=== PATIENT | female | born 1935 | race African-American/Black ===

== ENCOUNTER 2017-07-01 13:19 | Outpatient (CLI) | payer MEDICARE ==
--- NOTE | 2017-07-01 15:26 | CT ---
CT CHEST WITH IV CONTRAST: History: Lung nodule. FINDINGS: No comparison. Centered within the posterior segment of the right upper lobe is an oval infiltrate w ith hazy peripheral margins. It measures up to 2.2 x 2.0 cm greatest diameters with some internal ai r bronchograms apparent. No other focal parenchymal lung mass is evident. Calcified mediastinal lymp h nodes are consistent with healed granulomatous disease. No mediastinal adenopathy is apparent. The re is mild atelectasis at each lung base. Degenerative changes involve the lumbar spine. There is ca lcification in the arterial structures. Within the partially visualized upper abdomen, the adrenal g lands have a normal appearance. Lobulation of the cortex of the right kidney is partially visualized . IMPRESSION: 1. Focal mass like infiltrate containing air bronchograms within the posterior segment right upper l obe as detailed above, measuring up to 2.2 cm greatest diameter. Please consider pulmonary medicine evaluation. While a neoplastic process is possible, this could also represent a resolving inflammato ry process. The lack of well-defined internal soft tissue component would make this lesion not well amendable to percutaneous sampling. 2. Atherosclerosis. POS: [facility]
[2017-07-01] MEDS ORDERED: Iopamidol 370 76% 100 ML VIAL ONE (15:37)
== END 2017-07-01 13:20 | disposition home or self-care (01) ==
LOC: CT 13:19
PROVIDERS: ATTEND Family Medicine
DX: R91.1 Solitary pulmonary nodule (principal); I70.90 Unspecified atherosclerosis
CPT/HCPCS: 71260

== ENCOUNTER 2017-09-07 12:00 | Outpatient (CLI) | payer MEDICARE ==
--- NOTE | 2017-09-09 11:48 | PET ---
PET CT: HISTORY: 82-year-old female with solitary pulmonary nodule on CT scan of 07/01/17. TECHNIQUE: PET scanning with CT attenuation correction was performed from the vertex through the proximal thighs following the intravenous administration of 14.3 mCi [id number] in the right antecubital fossa. Imaging was performed after an uptake interval of 59 minutes. COMPARISON: None. CORRELATION: CT chest dated 07/01/17. FINDINGS: No abnormal FDG localization is seen in the 2.2 x 2.0 cm in the right upper lobe lung nodule (posteri or segment) noted on the CT scan. This demonstrates a SUV of 1.5. No other hypermetabolic pulmonary n odules are seen. No nayda hypermetabolism is noted in the neck, mediastinum, hilar regions, axilla, abdomen, pelvis, o r inguinal regions. No hypermetabolic liver, adrenal, or skeletal lesions are seen. There is physiologic activity in the GI and tracts, and the visualized portions of the brain. Asym metrically increased uptake is noted in the left longus colli muscle in the neck, likely physiologic. The CT scan used for attenuation correction demonstrates no evidence of pleural effusions or ascites. Calcified uterine fibroids are present. IMPRESSION: No abnormal FDG localization is noted in the right lung nodule. A follow-up CT scan is recommended in 3 months. POS: [facility]
== END 2017-09-07 12:01 | disposition home or self-care (01) ==
LOC: PET 12:00
PROVIDERS: ATTEND Internal Medicine Critical Care Medicine
DX: R91.1 Solitary pulmonary nodule (principal)
CPT/HCPCS: 78815; A9552

== ENCOUNTER 2017-09-09 13:18 | Outpatient (CLI) | payer MEDICARE ==
--- NOTE | 2017-09-09 16:02 | ULT ---
VENOUS DOPPLER ULTRASOUND OF THE LEFT LOWER EXTREMITY: Date: 09/09/17 HISTORY: Left lower extremity edema. TECHNIQUE: Malone scale ultrasound with color flow and spectral Doppler imaging of the deep venous systems of the left lower extremity performed. FINDINGS: There is good flow, compression, and augmentation noted in the left common femoral, femoral, deep fem oral, popliteal, posterior tibial, and greater saphenous veins. IMPRESSION: No evidence of deep venous thrombosis in the left lower extremity. POS: [facility]
== END 2017-09-09 13:19 | disposition home or self-care (01) ==
LOC: SCSULT 13:18
PROVIDERS: ATTEND Family Medicine
DX: M79.89 Other specified soft tissue disorders (principal)

== ENCOUNTER 2017-11-26 13:02 | Outpatient (CLI) | payer MEDICARE ==
[2017-11-26] MEDS ORDERED: Iopamidol 370 76% 100 ML VIAL ONE (13:39)
--- NOTE | 2017-11-26 15:41 | CT ---
ABDOMEN AND PELVIC CT SCAN WITH IV CONTRAST 11/26/17 HISTORY: 82-year-old female with history of intra-abdominal and pelvic swelling, mass, lump, history of rectal cancer with resection. There is evidence for cardiomegaly. There is some minimal nonspecific interstitial opacities in the l rasheeda bases, possibly chronic versus some vascular congestion with little change from the prior 07/01/[address] scan. The visualized liver, gallbladder, pancreas, spleen, and adrenal glands are unremarkable. There is ev idence for a hiatal hernia with some minimal asymmetric thickening of the fundal gastric wall possibl y related to underdistention. No renal hydronephrosis or renal calculus or obstructing calculus. M ultiple intrauterine fibroids. There appears to be some fluid in the cul-de-sac and left adnexal crissy on of the pelvis. There is some mild sinus ossificans changes noted superior to the greater trochante r of the right hip and involving the right gluteus medius muscle. Apparently the patient had a prior right femoral intramedullary suzie which has been removed. Marked canal, lateral recess, and foraminal stenosis at L4-L5 with some associated anterolisthesis. Atherosclerosis of the aorta without evidence of focal aneurysm. IMPRESSION: Some fluid in the cul-de-sac and left adnexal region. Multiple intrauterine fibroids, small. Some foc al thickening of the gastric fundal wall, commonly seen in association with incomplete distention, al though if there is a strong clinical concern, consideration for a followup endoscopy might be of bene fit. Small hiatal hernia. L4-5 lumbar spine, lateral recess, foraminal stenosis and anterolisthesis. Other findings as above. POS: [facility]
== END 2017-11-26 13:03 | disposition home or self-care (01) ==
LOC: CT 13:02
PROVIDERS: ATTEND Internal Medicine Cardiovascular Disease
DX: R19.00 Intra-abdominal and pelvic swelling, mass and lump, unspecified site (principal); D25.9 Leiomyoma of uterus, unspecified; K44.9 Diaphragmatic hernia without obstruction or gangrene; M43.16 Spondylolisthesis, lumbar region; M99.53 Intervertebral disc stenosis of neural canal of lumbar region
CPT/HCPCS: 74177

== ENCOUNTER 2018-03-11 07:51 | Outpatient (CLI) | payer MEDICARE, OTHER | END 2018-03-11 07:52 | disposition home or self-care (01) | LOC: BICCT 07:51 | PROVIDERS: ATTEND Family Medicine | DX: R51 Headache (principal) | CPT/HCPCS: 70450 ==

== ENCOUNTER 2018-06-02 08:30 | Outpatient (CLI) | payer MEDICARE | END 2018-06-02 08:31 | disposition home or self-care (01) | LOC: BICCT 08:30 | PROVIDERS: ATTEND Internal Medicine Critical Care Medicine | DX: R91.1 Solitary pulmonary nodule (principal); R91.8 Other nonspecific abnormal finding of lung field | CPT/HCPCS: 71250 ==

== ENCOUNTER 2019-01-30 12:58 | Outpatient (CLI) | payer MEDICARE ==
--- NOTE | 2019-01-30 13:32 | RAD ---
THREE VIEWS RIGHT SHOULDER: COMPARISON: None. HISTORY: Right shoulder pain. FINDINGS: Three views of the right shoulder show no evidence of acute fracture or dislocation. No degenerative changes are seen. The visualized right thorax is unremarkable. IMPRESSION: No evidence of acute osseous abnormality. POS: [facility]
--- NOTE | 2019-01-30 13:41 | RAD ---
RIGHT CLAVICLE SINGLE VIEW: HISTORY: Deformity of clavicle. FINDINGS: The clavicle is unremarkable on this single projection. AC joint is normally aligned. Mild spurring at the AC joint is noted. IMPRESSION: No acute abnormality apparent. POS: [facility]
== END 2019-01-30 12:59 | disposition home or self-care (01) ==
LOC: BICRAD 12:58
PROVIDERS: ATTEND Family Medicine
DX: M25.511 Pain in right shoulder (principal); M95.8 Other specified acquired deformities of musculoskeletal system

== ENCOUNTER 2022-07-13 09:20 | Outpatient (CLI) | payer OTHER | END 2022-07-13 09:21 | disposition home or self-care (01) | LOC: BICRAD 09:20 | PROVIDERS: ATTEND Family Medicine | DX: M79.672 Pain in left foot (principal); M25.572 Pain in left ankle and joints of left foot; M81.0 Age-related osteoporosis without current pathological fracture; Z87.81 Personal history of (healed) traumatic fracture; M25.872 Other specified joint disorders, left ankle and foot | CPT/HCPCS: 36415; 80053; 80061; 83036; 85025 ==

== ENCOUNTER 2023-02-06 14:15 | Outpatient (CLI) | payer OTHER | END 2023-02-06 14:16 | disposition home or self-care (01) | LOC: CT 14:15 | PROVIDERS: ATTEND Nurse Practitioner Family | DX: R91.8 Other nonspecific abnormal finding of lung field (principal) | CPT/HCPCS: 71250 ==